=== PATIENT | female | born 1995 | race African-American/Black ===

== ENCOUNTER 2023-08-05 01:44 | Inpatient (IN) | payer BC, OTHER ==
[~2023-08-05] VITALS: Ht 177.8 cm; Wt 149.7 kg
[2023-08-05] MEDS ORDERED: PANTOPRAZOLE SODIUM IV 80 MG in IV DEXTROSE 5% 100 ML IV ONE (02:30)
[2023-08-05] MEDS ORDERED: IV NORMAL SALINE 1000 ML BAG IV ONE (02:30)
[2023-08-05] MEDS ORDERED: ONDANSETRON 4 MG/2 ML VIAL IV ONE (02:30)
[2023-08-05] MEDS ORDERED: PANTOPRAZOLE SODIUM 40 MG VIAL ONE (02:34)
[2023-08-05] MEDS ORDERED: ONDANSETRON 4 MG/2 ML VIAL ONE (02:34)
[2023-08-05] MEDS ORDERED: IV NORMAL SALINE 500 ML BAG IV ONE (02:45)
[2023-08-05 03:03] LABS: BASOPHILS # (AUTO) 0.4 K/UL (0.0-0.2); BASOPHILS % (AUTO) 1.1 % (0.0-2.0); EOSINOPHILS # (AUTO) 0.4 K/uL (0.0-0.7); EOSINOPHILS % (AUTO) 1.1 % (0.0-7.0); HEMATOCRIT 46.1 % (31.2-41.9); HEMOGLOBIN 14.1 g/dL (10.9-14.3); LYMPHOCYTES # (AUTO) 3.9 K/uL (0.8-4.8); LYMPHOCYTES % (AUTO) 10.4 % (20.5-51.5); MEAN CORPUSCULAR HEMOGLOBIN 21.7 uug (24.7-32.8); MEAN CORPUSCULAR HGB CONC 31 g/dL (32.3-35.6); MEAN CORPUSCULAR VOLUME 70.8 fL (75.5-95.3); MONOCYTES # (AUTO) 0.9 K/uL (0.1-1.30); MONOCYTES % (AUTO) 2.5 % (0.0-11.0); NEUTROPHILS # (AUTO) 31.9 K/uL (1.8-8.9); NEUTROPHILS % (AUTO) 84.9 % (38.5-71.5); RED CELL DISTRIBUTION WIDTH 26.5 % (12.3-17.7)
[2023-08-05 03:09] LABS: CALCIUM 9.5 mg/dL (8.5-10.1); CARBON DIOXIDE 25 mmol/L (21-32); CHLORIDE 97 mmol/L (98-107); CREATININE 0.9 mg/dL (0.6-1.3); GLUCOSE 374 mg/dL (74-106); POTASSIUM 4.5 mmol/L (3.5-5.1); SODIUM SERUM 134 mmol/L (136-145); UREA NITROGEN, BLOOD 11 mg/dL (7-18)
[2023-08-05] MEDS ORDERED: TADA20TA43 (03:15)
[2023-08-05] MEDS ORDERED: ALLO100T (03:15)
[2023-08-05] MEDS ORDERED: BUME2TAB8 (03:15)
[2023-08-05] MEDS ORDERED: SELE800T (03:15)
[2023-08-05] MEDS ORDERED: INSU3INS6 SQ (03:15)
[2023-08-05] MEDS ORDERED: AMBR10TA5 (03:15)
[2023-08-05] MEDS ORDERED: SPIR25TA6 (03:15)
[2023-08-05] MEDS ORDERED: METF500T (03:15)
[2023-08-05] MEDS ORDERED: GABA-534 (03:15)
[2023-08-05] MEDS ORDERED: [UNRECOGNIZED DRUG - CODE] (03:15)
[2023-08-05] MEDS ORDERED: QUET200T (03:15)
[2023-08-05 03:21] LABS: RED BLOOD CELL COUNT(AUTO) 6.51 MIL/uL (3.63-4.92); WHITE BLOOD COUNT (AUTO) 37.6 K/uL (3.8-11.8)
[2023-08-05 03:22] LABS: DIFFERENTIAL COMMENT 1; PLATELET COUNT (AUTO) 1859 K/uL (179-408)
[2023-08-05 03:25] LABS: ALANINE AMINOTRANSFERASE 23 U/L (14-59); ALBUMIN 3.5 g/dL (3.4-5.0); ALKALINE PHOSPHATASE 115 U/L (50-136); ASPARTATE AMINOTRANSFERASE 31 U/L (15-37); BILIRUBIN,DIRECT 0.3 mg/dL (0.0-0.2); BILIRUBIN,TOTAL 2.1 mg/dL (0.2-1.0); LIPASE 33 U/L (73-393); TOTAL PROTEIN, SERUM 7.7 g/dL (6.4-8.2)
[2023-08-05] MEDS ORDERED: REMEDY ESSENTIAL ZINC PASTE 113 GM TP PRN (03:45)
[2023-08-05] MEDS ORDERED: DEXTROSE 50% 50 ML DISP.SYRIN IV PRN (03:45)
[2023-08-05] MEDS ORDERED: INSULIN REGULAR, HUMAN 300 UNIT/3 ML VIAL IV ONE (03:45)
[2023-08-05] MEDS ORDERED: ONDANSETRON 4 MG/2 ML VIAL IV PRN (03:45)
[2023-08-05] MEDS ORDERED: THIAMINE HCL 200 MG/2 ML VIAL ONE (05:50)
[2023-08-05] MEDS: THIAMINE HCL INJ 100 MG in IV DEXTROSE 5% 50 ML IV SCH (05:59)
[2023-08-05 06:13] LABS: BAND % (MANUAL) 2 % (0-10); EOSINOPHILS % (MANUAL) 1 % (0-8); LYMPHOCYTES % (MANUAL) 12 % (20-40); MONOCYTES % (MANUAL) 4 % (2-10); NEUTROPHILS % (MANUAL) 81 % (42-75)
[2023-08-05 06:14] LABS: ANISOCYTOSIS 1+; PLATELET ESTIMATE INCREASED
[2023-08-05] MEDS: BLOOD SUGAR DIAGNOSTIC 1 EACH STRIP VI SCH ×3 (06:23→17:14)
[2023-08-05] MEDS ORDERED: BUMETANIDE 1 MG TABLET PO SCH (09:00)
[2023-08-05 10:00] VITALS: BP 141/61; TEMP 98.4; O2SAT 94
[2023-08-05] MEDS: PANTOPRAZOLE SODIUM 40 MG VIAL IV SCH ×2 (10:00→20:55)
[2023-08-05] MEDS: BUMETANIDE 1 MG TABLET PO SCH ×2 (10:55→17:15)
[2023-08-05 12:00] VITALS: BP 111/56; TEMP 98.6; O2SAT 93
[2023-08-05 12:33] LABS: HEMOGLOBIN 12.1 g/dL (10.9-14.3)
[2023-08-05] MEDS: PIPERACILLIN SODIUM/TAZOBACTAM 3.375 G in IV DEXTROSE 5% 100 ML IV SCH ×2 (13:49→20:55)
[2023-08-05] MEDS: INSULIN REGULAR, HUMAN 300 UNIT/3 ML VIAL SQ PRN ×2 (14:04→17:17)
[2023-08-05 16:00] VITALS: BP 143/65; TEMP 97.9; O2SAT 96
[2023-08-05] MEDS ORDERED: EMPA10TA PO (17:37)
[2023-08-05] MEDS ORDERED: MIRT-73 PO (17:39)
[2023-08-05 17:40] VITALS: O2SAT 96
[2023-08-05] MEDS ORDERED: INSU100V39 SQ (17:42)
[2023-08-05] MEDS ORDERED: QUET50TA PO (17:43)
[2023-08-05] MEDS ORDERED: NILO150C PO (17:47)
[2023-08-05] MEDS ORDERED: MAG-OX PO (17:50)
[2023-08-05] MEDS ORDERED: SALM50DI2 IH (17:51)
[2023-08-05] MEDS ORDERED: ONDA4TAB5 GT (17:52)
[2023-08-05] MEDS ORDERED: CYAN500T47 PO (17:53)
[2023-08-05] MEDS ORDERED: FOLI1TAB94 PO (17:54)
[2023-08-05] MEDS ORDERED: CLON0.1T PO (17:54)
[2023-08-05] MEDS ORDERED: HYDR50CA5 PO (17:55)
[2023-08-05] MEDS ORDERED: METH-807 PO (17:56)
[2023-08-05] MEDS ORDERED: THIA100T74 PO (17:57)
[2023-08-05] MEDS ORDERED: PIPERACILLIN SODIUM/TAZOBACTAM 3.375 G in IV DEXTROSE 5% 50 ML IV SCH (18:00)
[2023-08-05 18:11] LABS: BASOPHILS # (AUTO) 0.3 K/UL (0.0-0.2); BASOPHILS % (AUTO) 1.3 % (0.0-2.0); DIFFERENTIAL COMMENT 0; EOSINOPHILS # (AUTO) 0.5 K/uL (0.0-0.7); EOSINOPHILS % (AUTO) 2.1 % (0.0-7.0); HEMATOCRIT 39.8 % (31.2-41.9); HEMOGLOBIN 12.4 g/dL (10.9-14.3); LYMPHOCYTES % (AUTO) 12.2 % (20.5-51.5); MEAN CORPUSCULAR HEMOGLOBIN 21.9 uug (24.7-32.8); MEAN CORPUSCULAR HGB CONC 31 g/dL (32.3-35.6); MEAN CORPUSCULAR VOLUME 70.5 fL (75.5-95.3); MONOCYTES # (AUTO) 0.4 K/uL (0.1-1.30); MONOCYTES % (AUTO) 1.8 % (0.0-11.0); NEUTROPHILS # (AUTO) 20.4 K/uL (1.8-8.9); NEUTROPHILS % (AUTO) 82.6 % (38.5-71.5); RED BLOOD CELL COUNT(AUTO) 5.64 MIL/uL (3.63-4.92); RED CELL DISTRIBUTION WIDTH 26.2 % (12.3-17.7); WHITE BLOOD COUNT (AUTO) 24.7 K/uL (3.8-11.8)
[2023-08-05 18:20] LABS: PLATELET COUNT (AUTO) 1852 K/uL (179-408)
[2023-08-05 19:00] LABS: ANISOCYTOSIS 3+; HYPOCHROMASIA 2+; LYMPHOCYTES % (MANUAL) 15 % (20-40); MONOCYTES % (MANUAL) 1 % (2-10); NEUTROPHILS % (MANUAL) 84 % (42-75); PLATELET ESTIMATE MARKED INCREASED
[2023-08-05 21:14] VITALS: BP 128/72; TEMP 98.7; O2SAT 97
[2023-08-06 00:05] VITALS: BP 116/73; O2SAT 96
[2023-08-06] MEDS: BLOOD SUGAR DIAGNOSTIC 1 EACH STRIP VI SCH ×4 (00:05→17:16)
[2023-08-06] MEDS: LORAZEPAM 2 MG/1 ML VIAL IV PRN ×2 (00:33→23:53)
[2023-08-06] MEDS: PIPERACILLIN SODIUM/TAZOBACTAM 3.375 G in IV DEXTROSE 5% 100 ML IV SCH ×3 (04:21→21:22)
[2023-08-06 05:19] LABS: BASOPHILS % (AUTO) 4.5 % (0.0-2.0); EOSINOPHILS # (AUTO) 0.8 K/uL (0.0-0.7); EOSINOPHILS % (AUTO) 3.6 % (0.0-7.0); HEMATOCRIT 40.6 % (31.2-41.9); HEMOGLOBIN 12.7 g/dL (10.9-14.3); LYMPHOCYTES # (AUTO) 4.1 K/uL (0.8-4.8); LYMPHOCYTES % (AUTO) 18.2 % (20.5-51.5); MEAN CORPUSCULAR HEMOGLOBIN 22.1 uug (24.7-32.8); MEAN CORPUSCULAR HGB CONC 31 g/dL (32.3-35.6); MEAN CORPUSCULAR VOLUME 70.6 fL (75.5-95.3); MONOCYTES # (AUTO) 0.6 K/uL (0.1-1.30); MONOCYTES % (AUTO) 2.5 % (0.0-11.0); NEUTROPHILS % (AUTO) 71.2 % (38.5-71.5); RED BLOOD CELL COUNT(AUTO) 5.75 MIL/uL (3.63-4.92); RED CELL DISTRIBUTION WIDTH 25.9 % (12.3-17.7); WHITE BLOOD COUNT (AUTO) 22.4 K/uL (3.8-11.8)
[2023-08-06 05:23] VITALS: BP 135/73; TEMP 98.7
[2023-08-06 05:26] LABS: PLATELET COUNT (AUTO) 1849 K/uL (179-408)
[2023-08-06 05:31] LABS: CALCIUM 8.3 mg/dL (8.5-10.1); MAGNESIUM 1.7 mg/dL (1.8-2.4); PHOSPHOROUS 4.5 mg/dL (2.5-4.9); POTASSIUM 3.6 mmol/L (3.5-5.1)
[2023-08-06 08:00] VITALS: BP 101/63; TEMP 97.6; O2SAT 93
[2023-08-06 08:19] LABS: BAND % (MANUAL) 4 % (0-10); EOSINOPHILS % (MANUAL) 4 % (0-8); LYMPHOCYTES % (MANUAL) 13 % (20-40); MONOCYTES % (MANUAL) 3 % (2-10); NEUTROPHILS % (MANUAL) 69 % (42-75)
[2023-08-06 08:20] LABS: BASOPHILS % (MANUAL) 2 % (0-2); REACTIVE LYMPHOCYTES 5 % (0-0); SMUDGE CELLS 2+
[2023-08-06 08:21] LABS: PLATELET ESTIMATE FEW LARGE PLTS
[2023-08-06 08:22] LABS: ANISOCYTOSIS 3+; HYPOCHROMASIA 1+
[2023-08-06 08:26] LABS: DIFFERENTIAL COMMENT 1
[2023-08-06] MEDS: BUMETANIDE 1 MG TABLET PO SCH ×2 (09:13→17:05)
[2023-08-06] MEDS: PANTOPRAZOLE SODIUM 40 MG VIAL IV SCH ×2 (09:13→21:23)
[2023-08-06] MEDS: THIAMINE HCL INJ 100 MG in IV DEXTROSE 5% 50 ML IV SCH (09:43)
[2023-08-06 12:00] VITALS: BP 110/74; TEMP 97.5; O2SAT 95
[2023-08-06] MEDS: MAGNESIUM SULFATE/D5W 100 ML IV SCH ×2 (12:03→12:58)
[2023-08-06] MEDS ORDERED: PANT40VI IV (13:01)
[2023-08-06] MEDS ORDERED: Blood Sugar Diagnostic VI (13:01)
[2023-08-06] MEDS ORDERED: THIA100V2 IJ (13:01)
[2023-08-06] MEDS ORDERED: BUME1TAB8 PO (13:01)
[2023-08-06] MEDS ORDERED: LORA2VIA6 IV (13:01)
[2023-08-06] MEDS ORDERED: INSU100V28 SQ (13:01)
[2023-08-06] MEDS ORDERED: PIPE3.379 IV (13:01)
[2023-08-06] MEDS ORDERED: ONDA4VIA23 IV (13:01)
[2023-08-06 16:00] VITALS: BP 129/49; TEMP 98.1; O2SAT 95
[2023-08-06] MEDS: INSULIN REGULAR, HUMAN 300 UNIT/3 ML VIAL SQ PRN (18:07)
[2023-08-06 20:00] VITALS: BP 110/65; TEMP 97.4; O2SAT 94
[2023-08-07] VITALS: BP 120/67; TEMP 97.8; O2SAT 94
[2023-08-07] MEDS: BLOOD SUGAR DIAGNOSTIC 1 EACH STRIP VI SCH ×4 (00:12→17:09)
[2023-08-07 03:00] VITALS: BP 121/73; TEMP 98.4; O2SAT 92
[2023-08-07] MEDS: PIPERACILLIN SODIUM/TAZOBACTAM 3.375 G in IV DEXTROSE 5% 100 ML IV SCH ×3 (04:55→20:49)
[2023-08-07 05:12] LABS: BILIRUBIN,TOTAL 0.9 mg/dL (0.2-1.0); CALCIUM 8.6 mg/dL (8.5-10.1); POTASSIUM 3.2 mmol/L (3.5-5.1); TOTAL PROTEIN, SERUM 6.5 g/dL (6.4-8.2)
[2023-08-07 05:23] LABS: BASOPHILS # (AUTO) 0.2 K/UL (0.0-0.2); BASOPHILS % (AUTO) 1.1 % (0.0-2.0); EOSINOPHILS # (AUTO) 0.8 K/uL (0.0-0.7); EOSINOPHILS % (AUTO) 3.6 % (0.0-7.0); HEMATOCRIT 41.6 % (31.2-41.9); HEMOGLOBIN 13.2 g/dL (10.9-14.3); LYMPHOCYTES # (AUTO) 4.8 K/uL (0.8-4.8); LYMPHOCYTES % (AUTO) 21.1 % (20.5-51.5); MEAN CORPUSCULAR HEMOGLOBIN 22.6 uug (24.7-32.8); MEAN CORPUSCULAR HGB CONC 32 g/dL (32.3-35.6); MEAN CORPUSCULAR VOLUME 71.1 fL (75.5-95.3); MONOCYTES # (AUTO) 0.4 K/uL (0.1-1.30); MONOCYTES % (AUTO) 1.9 % (0.0-11.0); NEUTROPHILS # (AUTO) 16.5 K/uL (1.8-8.9); NEUTROPHILS % (AUTO) 72.3 % (38.5-71.5); RED BLOOD CELL COUNT(AUTO) 5.85 MIL/uL (3.63-4.92); RED CELL DISTRIBUTION WIDTH 25.8 % (12.3-17.7); WHITE BLOOD COUNT (AUTO) 22.8 K/uL (3.8-11.8)
[2023-08-07 06:03] LABS: DIFFERENTIAL COMMENT 1; PLATELET COUNT (AUTO) 1952 K/uL (179-408)
[2023-08-07 06:13] LABS: EOSINOPHILS % (MANUAL) 1 % (0-8); LYMPHOCYTES % (MANUAL) 19 % (20-40); MONOCYTES % (MANUAL) 1 % (2-10); NEUTROPHILS % (MANUAL) 79 % (42-75); PLATELET ESTIMATE MARKED INCREASED
[2023-08-07 06:14] LABS: ANISOCYTOSIS 3+; HYPOCHROMASIA 2+
[2023-08-07] MEDS: INSULIN REGULAR, HUMAN 300 UNIT/3 ML VIAL SQ PRN ×2 (06:21→17:13)
[2023-08-07 08:00] VITALS: BP 129/53; TEMP 97.9; O2SAT 94
[2023-08-07] MEDS ORDERED: THIAMINE HCL 100 MG TABLET PO SCH (09:00)
[2023-08-07] MEDS: PANTOPRAZOLE SODIUM 40 MG VIAL IV SCH ×2 (09:12→20:49)
[2023-08-07] MEDS: BUMETANIDE 1 MG TABLET PO SCH ×2 (09:14→17:00)
[2023-08-07] MEDS ORDERED: POTASSIUM CHLORIDE 20 MEQ POWDER PACKET PO ONE (10:30)
[2023-08-07] MEDS ORDERED: POTASSIUM CHLORIDE 20 MEQ TAB.PRT.SR PO ONE (10:30)
[2023-08-07 12:00] VITALS: BP 111/52; TEMP 98.3; O2SAT 94
[2023-08-07 16:00] VITALS: BP 115/67; TEMP 98; O2SAT 94
[2023-08-07 20:30] VITALS: BP 121/76; TEMP 98.8; O2SAT 94
== END 2023-08-07 20:30 | disposition short-term general hospital (02) | DRG 377 ==
LOC: ER 01:47 → TELE3 03:40 → CCU 09:09
PROVIDERS: ADMIT Nurse Practitioner Acute Care; ATTEND Nurse Practitioner Acute Care
DX: K92.2 Gastrointestinal hemorrhage, unspecified (principal); I21.A1 Myocardial infarction type 2; C92.10 Chronic myeloid leukemia, BCR/ABL-positive, not having achieved remission; I50.22 Chronic systolic (congestive) heart failure; Z68.42 Body mass index [BMI] 45.0-49.9, adult; F17.210 Nicotine dependence, cigarettes, uncomplicated; F10.20 Alcohol dependence, uncomplicated; I27.20 Pulmonary hypertension, unspecified; I11.0 Hypertensive heart disease with heart failure; E66.01 Morbid (severe) obesity due to excess calories; E11.65 Type 2 diabetes mellitus with hyperglycemia; F31.9 Bipolar disorder, unspecified; D75.839 Thrombocytosis, unspecified; I50.82 Biventricular heart failure; Z79.84 Long term (current) use of oral hypoglycemic drugs; Z79.899 Other long term (current) drug therapy; Z79.4 Long term (current) use of insulin; Z87.11 Personal history of peptic ulcer disease; R74.01 Elevation of levels of liver transaminase levels; D72.829 Elevated white blood cell count, unspecified
CPT/HCPCS: 36415; 70030-TC; 71045; 83690; 83735; 84100; 84484; 85018; 85025; 85730; 86850; 86900; 86901; 93005; 93307; C9113; G0378; J1815; J2060; J2405; J2543; J3411; J3475; J7040

== ENCOUNTER 2023-10-02 23:22 | Inpatient (IN) | payer BC ==
[~2023-10-02] VITALS: Ht 177.8 cm; Wt 139.0 kg
[~2023-10-02 23:22] MED LIST: ALLO100T PO; AMBR10TA5 PO; BUME1TAB8 PO; BUME2TAB8; Blood Sugar Diagnostic VI; CLON0.1T PO; CYAN500T47 PO; EMPA10TA PO; FOLI1TAB94 PO; GABA-534; HYDR50CA5 PO; INSU100V28 SQ; INSU100V39 SQ; INSU3INS6 SQ; LORA2VIA6 IV; MAG-OX PO; METH-807 PO; MIRT-73 PO; NILO150C PO; ONDA4VIA23 IV; PANT40VI IV; PIPE3.379 IV; QUET200T; QUET50TA PO; SALM50DI2 IH; SELE800T; TADA20TA43 PO; THIA100T74 PO; THIA100V2 IJ; [UNRECOGNIZED DRUG - CODE]
[2023-10-03 00:10] LABS: BASOPHILS # (AUTO) 0.1 K/UL (0.0-0.2); BASOPHILS % (AUTO) 1.1 % (0.0-2.0); EOSINOPHILS % (AUTO) 0.4 % (0.0-7.0); HEMATOCRIT 35.2 % (31.2-41.9); HEMOGLOBIN 11.9 g/dL (10.9-14.3); LYMPHOCYTES # (AUTO) 2.7 K/uL (0.8-4.8); LYMPHOCYTES % (AUTO) 58.1 % (20.5-51.5); MEAN CORPUSCULAR HEMOGLOBIN 27.8 uug (24.7-32.8); MEAN CORPUSCULAR HGB CONC 34 g/dL (32.3-35.6); MEAN CORPUSCULAR VOLUME 82.3 fL (75.5-95.3); MONOCYTES # (AUTO) 0.2 K/uL (0.1-1.30); MONOCYTES % (AUTO) 4.7 % (0.0-11.0); NEUTROPHILS # (AUTO) 1.6 K/uL (1.8-8.9); NEUTROPHILS % (AUTO) 35.7 % (38.5-71.5); PLATELET COUNT (AUTO) 193 K/uL (179-408); RED BLOOD CELL COUNT(AUTO) 4.27 MIL/uL (3.63-4.92); RED CELL DISTRIBUTION WIDTH 38.9 % (12.3-17.7); WHITE BLOOD COUNT (AUTO) 4.6 K/uL (3.8-11.8)
[2023-10-03 00:13] LABS: DIFFERENTIAL COMMENT 1
[2023-10-03 00:17] LABS: CALCIUM 9.7 mg/dL (8.5-10.1); CARBON DIOXIDE 31 mmol/L (21-32); CHLORIDE 95 mmol/L (98-107); CREATININE 1.4 mg/dL (0.6-1.3); GLUCOSE 257 mg/dL (74-106); POTASSIUM 2.9 mmol/L (3.5-5.1); SODIUM SERUM 136 mmol/L (136-145); UREA NITROGEN, BLOOD 19 mg/dL (7-18)
[2023-10-03 00:33] LABS: ALANINE AMINOTRANSFERASE 31 U/L (14-59); ALBUMIN 4.2 g/dL (3.4-5.0); ALKALINE PHOSPHATASE 87 U/L (50-136); ASPARTATE AMINOTRANSFERASE 27 U/L (15-37); BILIRUBIN,DIRECT 0.1 mg/dL (0.0-0.2); BILIRUBIN,TOTAL 0.6 mg/dL (0.2-1.0); NT-PRO BNP 297 pg/mL (0-125); TOTAL PROTEIN, SERUM 8.1 g/dL (6.4-8.2)
[2023-10-03 00:39] LABS: *AMPHETAMINE, URINE NEGATIVE (NEGATIVE); *BARBITURATE, URINE NEGATIVE (NEGATIVE); *BENZODIAZEPINE, URINE NEGATIVE (NEGATIVE); *CANNABINOID, URINE NEGATIVE (NEGATIVE); *COCCAINE, URINE NEGATIVE (NEGATIVE); *OPIATE, URINE NEGATIVE (NEGATIVE); *PHENCYCLIDINE SCREEN,URINE NEGATIVE (NEGATIVE)
[2023-10-03 00:40] LABS: FENTANYL, URINE NEGATIVE (NEGATIVE)
[2023-10-03 00:41] LABS: *URINE HCG, QUAL NEGATIVE (NEGATIVE)
[2023-10-03] MEDS ORDERED: POTASSIUM CHLORIDE 20 MEQ TAB.PRT.SR PO ONE ×3 (00:45→12:00)
[2023-10-03] MEDS ORDERED: INSU100I26 SQ (01:21)
[2023-10-03] MEDS ORDERED: SELE200T33 PO (01:21)
[2023-10-03] MEDS ORDERED: EMPA25TA PO ×2 (01:21→18:55)
[2023-10-03] MEDS ORDERED: ASPIRIN 81 MG TAB.CHEW PO ONE (01:30)
[2023-10-03] MEDS ORDERED: ONDANSETRON 4 MG/2 ML VIAL ONE (01:38)
[2023-10-03] MEDS ORDERED: ENOXAPARIN SODIUM 40 MG/0.4 ML DISP.SYRIN SQ ONE (01:38)
[2023-10-03] MEDS ORDERED: ENOXAPARIN SODIUM 100 MG/ML DISP.SYRIN SQ ONE (01:39)
[2023-10-03] MEDS ORDERED: ENOXAPARIN SODIUM 100 MG, ENOXAPARIN SODIUM 40 MG SQ SCH ×2 (01:45)
[2023-10-03] MEDS ORDERED: ONDANSETRON 4 MG/2 ML VIAL IV ONE (01:45)
[2023-10-03] MEDS ORDERED: DEXTROSE 50% 50 ML DISP.SYRIN IV PRN (02:00)
[2023-10-03] MEDS ORDERED: ACETAMINOPHEN 325 MG TABLET PO PRN (02:00)
[2023-10-03] MEDS ORDERED: ONDANSETRON 4 MG/2 ML VIAL IV PRN (02:00)
[2023-10-03] MEDS ORDERED: ASPIRIN 325 MG TABLET ONE (02:01)
[2023-10-03 04:33] VITALS: BP 115/74; TEMP 98.3; O2SAT 96
[2023-10-03] MEDS: POTASSIUM CHLORIDE 50 ML IV SCH ×2 (05:21→05:22)
[2023-10-03] MEDS: PANTOPRAZOLE SODIUM 40 MG TABLET.DR PO SCH (06:17)
[2023-10-03] MEDS: BLOOD SUGAR DIAGNOSTIC 1 EACH STRIP VI SCH ×4 (06:50→20:54)
[2023-10-03 07:09] LABS: BASOPHILS % (AUTO) 0.1 % (0.0-2.0); EOSINOPHILS % (AUTO) 0.1 % (0.0-7.0); HEMATOCRIT 30.4 % (31.2-41.9); HEMOGLOBIN 10.7 g/dL (10.9-14.3); LYMPHOCYTES # (AUTO) 2.5 K/uL (0.8-4.8); LYMPHOCYTES % (AUTO) 62.9 % (20.5-51.5); MEAN CORPUSCULAR HEMOGLOBIN 28.8 uug (24.7-32.8); MEAN CORPUSCULAR HGB CONC 35 g/dL (32.3-35.6); MEAN CORPUSCULAR VOLUME 81.9 fL (75.5-95.3); MONOCYTES # (AUTO) 0.2 K/uL (0.1-1.30); NEUTROPHILS # (AUTO) 1.3 K/uL (1.8-8.9); NEUTROPHILS % (AUTO) 31.9 % (38.5-71.5); PLATELET COUNT (AUTO) 159 K/uL (179-408); RED BLOOD CELL COUNT(AUTO) 3.71 MIL/uL (3.63-4.92); RED CELL DISTRIBUTION WIDTH 38.5 % (12.3-17.7)
[2023-10-03 07:22] LABS: DIFFERENTIAL COMMENT 1
[2023-10-03 07:35] LABS: THYROID STIMULATING HORMONE 2.604 mIU/mL (0.358-3.740)
[2023-10-03 08:14] LABS: CALCIUM 8.9 mg/dL (8.5-10.1); CREATININE 1.2 mg/dL (0.6-1.3)
[2023-10-03] MEDS: ASPIRIN 81 MG TAB.CHEW PO SCH (08:14)
[2023-10-03 08:15] LABS: POTASSIUM 2.8 mmol/L (3.5-5.1)
[2023-10-03] MEDS: INSULIN REGULAR, HUMAN 300 UNIT/3 ML VIAL SQ PRN ×4 (08:16→20:55)
[2023-10-03] MEDS ORDERED: POTASSIUM CHLORIDE 20 MEQ POWDER PACKET GT ONE (09:00)
[2023-10-03] MEDS ORDERED: POTASSIUM CHLORIDE 50 ML IV SCH (09:00)
[2023-10-03 10:15] LABS: THYROID STIMULATING HORMONE 2.506 mIU/mL (0.358-3.740)
[2023-10-03 11:35] VITALS: BP 98/41; TEMP 98.5; O2SAT 94
[2023-10-03 13:10] VITALS: O2SAT 93; O2SAT 97
[2023-10-03] MEDS ORDERED: INSU100I14 SQ (15:39)
[2023-10-03 16:00] VITALS: BP 97/49; TEMP 98.6; O2SAT 96
[2023-10-03] MEDS ORDERED: SCOP1PAT13 TD (18:55)
[2023-10-03] MEDS ORDERED: LOPE2TAB25 PO (18:55)
[2023-10-03] MEDS ORDERED: IMAT400T7 PO (18:55)
[2023-10-03] MEDS ORDERED: ACET-73 PO (18:55)
[2023-10-03] MEDS ORDERED: MULT-1045 PO (18:55)
[2023-10-03] MEDS ORDERED: SPIR50TA5 PO (18:55)
[2023-10-03] MEDS ORDERED: METO2.5T2 PO (18:55)
[2023-10-03] MEDS ORDERED: FOLI1TAB94 PO (18:55)
[2023-10-03] MEDS ORDERED: MELA10TA PO (18:55)
[2023-10-03] MEDS ORDERED: FERR-68 PO (18:55)
[2023-10-03] MEDS ORDERED: METF-440 PO (18:55)
[2023-10-03] MEDS ORDERED: DOXY1TAB4 PO (18:55)
[2023-10-03] MEDS ORDERED: NALT50TA PO (18:55)
[2023-10-03] MEDS ORDERED: METO5TAB87 PO (18:55)
[2023-10-03] MEDS ORDERED: CLON0.1T PO (18:55)
[2023-10-03] MEDS ORDERED: HYDR500C2 PO (18:55)
[2023-10-03] MEDS ORDERED: IBUP-1488 PO (18:55)
[2023-10-03] MEDS ORDERED: MAGN250T10 PO (18:55)
[2023-10-03] MEDS ORDERED: BUME1TAB8 PO (18:56)
[2023-10-03] MEDS ORDERED: CHOL500062 PO (19:07)
[2023-10-03 20:26] VITALS: BP 113/61; TEMP 98; O2SAT 91
[2023-10-03] MEDS ORDERED: ATORVASTATIN 40 MG TABLET PO SCH (21:00)
[2023-10-04 00:22] VITALS: BP 107/46; TEMP 97.3; O2SAT 93
[2023-10-04 05:12] VITALS: BP 110/48; TEMP 97; O2SAT 90
[2023-10-04] MEDS: PANTOPRAZOLE SODIUM 40 MG TABLET.DR PO SCH (06:04)
[2023-10-04] MEDS: BLOOD SUGAR DIAGNOSTIC 1 EACH STRIP VI SCH ×2 (06:31→11:48)
[2023-10-04] MEDS ORDERED: DOXYLAMINE PO PRN (07:45)
[2023-10-04] MEDS ORDERED: CLONIDINE HCL 0.1 MG TABLET PO PRN (07:45)
[2023-10-04] MEDS ORDERED: SALMETEROL XINAFOATE 50 MCG IH PRN (07:45)
[2023-10-04] MEDS ORDERED: PYRIDOXINE HCL PO PRN (07:45)
[2023-10-04] MEDS: INSULIN REGULAR, HUMAN 300 UNIT/3 ML VIAL SQ PRN ×2 (07:46→11:47)
[2023-10-04] MEDS: ASPIRIN 81 MG TAB.CHEW PO SCH (08:15)
[2023-10-04] MEDS ORDERED: ALBUTEROL SULFATE 2.5 MG/3 ML NEBU NEB PRN (08:15)
[2023-10-04] MEDS ORDERED: IMATINIB MESYLATE 400 MG PO SCH (09:00)
[2023-10-04] MEDS ORDERED: CHOLECALCIFEROL 1,000 UNIT TABLET PO SCH (09:00)
[2023-10-04] MEDS ORDERED: FERROUS SULFATE 325 MG TABEC PO SCH (09:00)
[2023-10-04] MEDS ORDERED: SELEXIPAG PO SCH (09:00)
[2023-10-04] MEDS ORDERED: AMBRISENTAN PO SCH (09:00)
[2023-10-04] MEDS ORDERED: Medication Not On Formulary EA (Multivitamin (Multi-Vitamin Daily) 1 EACH) PO SCH (09:00)
[2023-10-04] MEDS ORDERED: THIAMINE HCL 100 MG TABLET PO SCH (09:00)
[2023-10-04] MEDS ORDERED: CYANOCOBALAMIN 500 MCG PO SCH (09:00)
[2023-10-04] MEDS ORDERED: Medication Not On Formulary EA (Cholecalciferol (Vitamin D3) (Vitamin D3) 1 TAB) PO SCH (09:00)
[2023-10-04] MEDS ORDERED: TADALAFIL 40 MG PO SCH (09:00)
[2023-10-04] MEDS ORDERED: INSULIN GLARGINE,HUM 300 UNITS/3 ML CARTRIDGE SQ SCH (09:00)
[2023-10-04] MEDS ORDERED: ALLOPURINOL 100 MG TABLET PO SCH (09:00)
[2023-10-04] MEDS ORDERED: SCOPOLAMINE PATCH 1 MG/72 HRS PATCH TD SCH (09:00)
[2023-10-04] MEDS ORDERED: SPIRONOLACTONE 25 MG TABLET PO SCH (09:00)
[2023-10-04] MEDS ORDERED: MULTIVITAMINS,THERAPEUTIC TABLET PO SCH (09:00)
[2023-10-04] MEDS ORDERED: CYANOCOBALAMIN 1,000 MCG TABLET PO SCH (09:00)
[2023-10-04] MEDS ORDERED: FOLIC ACID 1 MG TABLET PO SCH (09:00)
[2023-10-04] MEDS ORDERED: MAGNESIUM OXIDE 250 MG TABLET PO SCH (09:00)
[2023-10-04] MEDS ORDERED: NALTREXONE HCL 50 MG PO SCH (09:00)
[2023-10-04] MEDS ORDERED: BUMETANIDE 1 MG TABLET PO SCH (09:00)
[2023-10-04 10:21] LABS: CALCIUM 8.6 mg/dL (8.5-10.1); MAGNESIUM 2.1 mg/dL (1.8-2.4); POTASSIUM 2.9 mmol/L (3.5-5.1)
[2023-10-04 10:54] LABS: BASOPHILS % (AUTO) 0.1 % (0.0-2.0); DIFFERENTIAL COMMENT 0; EOSINOPHILS % (AUTO) 0.3 % (0.0-7.0); HEMATOCRIT 29.4 % (31.2-41.9); HEMOGLOBIN 10.2 g/dL (10.9-14.3); LYMPHOCYTES # (AUTO) 1.5 K/uL (0.8-4.8); LYMPHOCYTES % (AUTO) 61.8 % (20.5-51.5); MEAN CORPUSCULAR HEMOGLOBIN 28.7 uug (24.7-32.8); MEAN CORPUSCULAR HGB CONC 35 g/dL (32.3-35.6); MEAN CORPUSCULAR VOLUME 82.9 fL (75.5-95.3); MONOCYTES # (AUTO) 0.1 K/uL (0.1-1.30); MONOCYTES % (AUTO) 5.1 % (0.0-11.0); NEUTROPHILS # (AUTO) 0.8 K/uL (1.8-8.9); NEUTROPHILS % (AUTO) 32.7 % (38.5-71.5); PLATELET COUNT (AUTO) 144 K/uL (179-408); RED BLOOD CELL COUNT(AUTO) 3.55 MIL/uL (3.63-4.92); RED CELL DISTRIBUTION WIDTH 38.8 % (12.3-17.7); WHITE BLOOD COUNT (AUTO) 2.4 K/uL (3.8-11.8)
[2023-10-04 11:35] VITALS: BP 112/58; TEMP 98.2; O2SAT 94
[2023-10-04 11:59] LABS: ANISOCYTOSIS 2+; LYMPHOCYTES % (MANUAL) 54 % (20-40); MONOCYTES % (MANUAL) 5 % (2-10); NEUTROPHILS % (MANUAL) 41 % (42-75); PLATELET ESTIMATE ADEQUATE
[2023-10-04] MEDS: POTASSIUM CHLORIDE 10 MEQ TAB.PRT.SR PO SCH ×2 (12:37→14:21)
[2023-10-04] MEDS ORDERED: HYDROXYUREA 500 MG CAPSULE PO SCH (17:00)
[2023-10-04] MEDS ORDERED: Melatonin 10 MG) PO SCH (18:00)
[2023-10-04] MEDS ORDERED: MIRTAZAPINE 15 MG TABLET PO SCH (21:00)
[2023-10-04] MEDS ORDERED: MELATONIN 3 MG TABLET PO SCH (21:00)
[2023-10-05] MEDS ORDERED: INSULIN GLARGINE,HUM 300 UNITS/3 ML CARTRIDGE SQ SCH (09:00)
== END 2023-10-04 15:41 | disposition home or self-care (01) | DRG 314 ==
LOC: ER 23:30 → TELE3 10-03 01:44
PROVIDERS: ADMIT Nurse Practitioner Family; ATTEND Internal Medicine
DX: I27.29 Other secondary pulmonary hypertension (principal); N17.0 Acute kidney failure with tubular necrosis; C92.10 Chronic myeloid leukemia, BCR/ABL-positive, not having achieved remission; Z68.41 Body mass index [BMI] 40.0-44.9, adult; E87.6 Hypokalemia; I50.812 Chronic right heart failure; E11.65 Type 2 diabetes mellitus with hyperglycemia; E78.5 Hyperlipidemia, unspecified; Z79.631 Long term (current) use of antimetabolite agent; F17.210 Nicotine dependence, cigarettes, uncomplicated; E66.01 Morbid (severe) obesity due to excess calories; E34.9 Endocrine disorder, unspecified; R79.89 Other specified abnormal findings of blood chemistry; R94.31 Abnormal electrocardiogram [ECG] [EKG]; Z87.19 Personal history of other diseases of the digestive system; Z88.8 Allergy status to other drugs, medicaments and biological substances; F31.9 Bipolar disorder, unspecified; F14.10 Cocaine abuse, uncomplicated; F10.10 Alcohol abuse, uncomplicated; F15.10 Other stimulant abuse, uncomplicated; E87.8 Other disorders of electrolyte and fluid balance, not elsewhere classified; Z79.4 Long term (current) use of insulin; Z79.899 Other long term (current) drug therapy; Z79.84 Long term (current) use of oral hypoglycemic drugs
CPT/HCPCS: 36415; 70030-TC; 71045; 76770; 83550; 83735; 84443; 84484; 84703; 85025; 93005; 93307; A4606; A4663; G0378; J1650; J1815; J2405; J3480; J8499